=== PATIENT | male | born 1940 | race Caucasian/White ===

== ENCOUNTER 2023-03-24 23:10 | Emergency (ER) | payer MEDICARE, OTHER ==
[~2023-03-24] VITALS: Ht 175.2 cm; Wt 90.7 kg
[~2023-03-24 23:10] MED LIST: COREG25 MG PO; KEFLEX500 MG PO; KLOR-CON M2020 MEQ PO; LIPITOR10 MG PO; NORVASC5 MG; NORVASC5 MG PO; TEKTURNA300 MG PO; VICODIN 5/500 505 MG PO
[2023-03-24] MEDS ORDERED: ZESTRIL10 MG PO (23:21)
[2023-03-24] MEDS ORDERED: ELIQUIS5 M1 PO (23:22)
[2023-03-25 01:31] LABS: BASO % 0.4 % (0.0-1.0); EOS % 0.4 % (1.0-4.0); HEMATOCRIT 36.5 % (42.0-52.0); LYMPH # 0.3 10*3/uL (1.3-4.4); LYMPH % 7.6 % (27.0-41.0); MEAN CELL VOLUME 89.5 fl (80.0-94.0); MEAN CORPUSCULAR HGB 30.1 pg (27.0-31.0); MEAN CORPUSCULAR HGB CONC 33.7 g/dl (33.0-37.0); MEAN PLATELET VOLUME 9.3 fl (9.6-12.3); MONO # 0.5 10*3/uL (0.1-1.0); MONO % 11.7 % (3.0-9.0); NEUT # 3.6 10*3/uL (2.3-7.9); NEUT % 79.7 % (47.0-73.0); PLATELET COUNT AUTOMATED 80 10*3/uL (130-400); RED BLOOD COUNT 4.08 10*6/uL (4.50-5.90); RED CELL DISTRI WIDTH 14.7 % (0-14.5); WHITE BLOOD COUNT 4.5 10*3/uL (4.8-10.8)
[2023-03-25 02:47] LABS: BILIRUBIN 1+ (Negative); BLOOD 3+ (Negative); CLARITY Turbid (Clear); COLOR Red (Yellow); GLUCOSE Negative (Negative); KETONE Negative (Negative); LEUKO ESTERASE 1+ (Negative); NITRITE Positive (Negative); PH 6.5 (4.5-8.0); SPECIFIC GRAVITY 1.015 (1.001-1.030)
[2023-03-25 02:55] LABS: BACTERIA 2+; RBC TNTC rbc/hpf (0-2)
[2023-03-25] MEDS ORDERED: OMNICEF300 MG PO (04:38)
== END 2023-03-25 04:41 | disposition home or self-care (01) ==
LOC: ED 23:10
PROVIDERS: Emergency Medicine
DX: R33.9 Retention of urine, unspecified (principal); R31.9 Hematuria, unspecified; N39.0 Urinary tract infection, site not specified; I10 Essential (primary) hypertension

== ENCOUNTER 2023-04-22 00:34 | Emergency (ER) | payer MEDICARE, OTHER ==
[~2023-04-22] VITALS: Ht 175.2 cm; Wt 89.4 kg
[~2023-04-22 00:34] MED LIST changes: +ELIQUIS5 M1 PO; +KLOR-CON M2020 ME1 PO; -KLOR-CON M2020 MEQ PO; +OMNICEF300 MG PO; +ZESTRIL10 MG PO
[2023-04-22] MEDS ORDERED: ALDACTONE25 M1 PO (00:54)
[2023-04-22 02:08] LABS: BASO % 0.2 % (0.0-1.0); EOS # 0.1 10*3/uL (0.0-0.4); EOS % 1.3 % (1.0-4.0); HEMATOCRIT 33.1 % (42.0-52.0); LYMPH # 0.3 10*3/uL (1.3-4.4); LYMPH % 7.2 % (27.0-41.0); MEAN CELL VOLUME 89.9 fl (80.0-94.0); MEAN CORPUSCULAR HGB 30.7 pg (27.0-31.0); MEAN CORPUSCULAR HGB CONC 34.1 g/dl (33.0-37.0); MEAN PLATELET VOLUME 9.1 fl (9.6-12.3); MONO # 0.7 10*3/uL (0.1-1.0); NEUT # 3.6 10*3/uL (2.3-7.9); NEUT % 76.9 % (47.0-73.0); PLATELET COUNT AUTOMATED 87 10*3/uL (130-400); RED BLOOD COUNT 3.68 10*6/uL (4.50-5.90); RED CELL DISTRI WIDTH 15.3 % (0-14.5); WHITE BLOOD COUNT 4.7 10*3/uL (4.8-10.8)
[2023-04-22 02:29] LABS: BUN 12 mg/dl (9-23); CHLORIDE 98 mmol/L (98-107)
[2023-04-22 02:31] LABS: BILIRUBIN Negative (Negative); BLOOD Negative (Negative); CLARITY Clear (Clear); COLOR Yellow (Yellow); GLUCOSE Negative (Negative); KETONE Negative (Negative); LEUKO ESTERASE Negative (Negative); NITRITE Negative (Negative); PH 7.5 (4.5-8.0)
== END 2023-04-22 02:57 | disposition home or self-care (01) ==
LOC: ED 00:34
PROVIDERS: Internal Medicine
DX: R33.9 Retention of urine, unspecified (principal); E87.1 Hypo-osmolality and hyponatremia; D64.9 Anemia, unspecified; I10 Essential (primary) hypertension

== ENCOUNTER 2023-06-07 08:43 | Inpatient (IN) | payer MEDICARE, OTHER ==
[~2023-06-07] VITALS: Ht 175.2 cm; Wt 79.2 kg
[~2023-06-07 08:43] MED LIST changes: +ALDACTONE25 M1 PO
[2023-06-07 08:49] VITALS: BP 178/98
[2023-06-07] MEDS ORDERED: BUMETANIDE2 MG PO ×2 (08:51→08:52)
[2023-06-07] MEDS ORDERED: LIPITOR40 MG PO (08:54)
[2023-06-07] MEDS ORDERED: ASPIRIN81 M1 PO (08:56)
[2023-06-07 09:26] LABS: BASO % 0.6 % (0.0-1.0); EOS # 0.1 10*3/uL (0.0-0.4); EOS % 1.3 % (1.0-4.0); HEMATOCRIT 32.2 % (42.0-52.0); LYMPH # 0.3 10*3/uL (1.3-4.4); LYMPH % 6.3 % (27.0-41.0); MEAN CELL VOLUME 94.2 fl (80.0-94.0); MEAN CORPUSCULAR HGB 30.1 pg (27.0-31.0); MEAN PLATELET VOLUME 9.4 fl (9.6-12.3); MONO # 0.6 10*3/uL (0.1-1.0); MONO % 11.7 % (3.0-9.0); NEUT # 3.8 10*3/uL (2.3-7.9); NEUT % 79.7 % (47.0-73.0); PLATELET COUNT AUTOMATED 107 10*3/uL (130-400); RED BLOOD COUNT 3.42 10*6/uL (4.50-5.90); RED CELL DISTRI WIDTH 14.4 % (0-14.5); WHITE BLOOD COUNT 4.8 10*3/uL (4.8-10.8)
[2023-06-07 09:40] LABS: ACT PARTIAL THROMBO TIME 32.2 SECONDS (20.0-32.1); INTERNATIONAL NORM RATIO 1.2 (2.0-3.5)
[2023-06-07 09:52] LABS: ALKALINE PHOSPHATASE 107 U/L (46-116); BUN 22 mg/dl (9-23); CHLORIDE 104 mmol/L (98-107); LIPASE 27 U/L (12-53); POTASSIUM 4.3 mmol/L (3.4-5.1)
[2023-06-07 09:53] LABS: SGPT/ALT < 7 U/L (10-49)
[2023-06-07 11:25] VITALS: BP 179/100
[2023-06-07 13:00] VITALS: BP 171/95
[2023-06-07 16:00] VITALS: BP 164/82
[2023-06-07 20:00] VITALS: BP 148/64
[2023-06-08] VITALS: BP 140/69
[2023-06-08 06:45] LABS: BASO % 0.8 % (0.0-1.0); EOS # 0.1 10*3/uL (0.0-0.4); EOS % 1.4 % (1.0-4.0); HEMATOCRIT 33.1 % (42.0-52.0); LYMPH # 0.4 10*3/uL (1.3-4.4); LYMPH % 8.2 % (27.0-41.0); MEAN CELL VOLUME 95.9 fl (80.0-94.0); MEAN CORPUSCULAR HGB 30.1 pg (27.0-31.0); MEAN CORPUSCULAR HGB CONC 31.4 g/dl (33.0-37.0); MEAN PLATELET VOLUME 9.4 fl (9.6-12.3); MONO # 0.6 10*3/uL (0.1-1.0); MONO % 11.9 % (3.0-9.0); NEUT % 77.5 % (47.0-73.0); PLATELET COUNT AUTOMATED 117 10*3/uL (130-400); RED BLOOD COUNT 3.45 10*6/uL (4.50-5.90); RED CELL DISTRI WIDTH 14.4 % (0-14.5); WHITE BLOOD COUNT 5.1 10*3/uL (4.8-10.8)
[2023-06-08 07:18] LABS: BUN 22 mg/dl (9-23); CHLORIDE 103 mmol/L (98-107); CHOLESTEROL 111 mg/dL (<200); LDL CHOLESTEROL 62 mg/dL (9-159); POTASSIUM 4.3 mmol/L (3.4-5.1); TRIGLYCERIDES 46 mg/dl (<150)
[2023-06-08 07:38] LABS: VITAMIN D, 25-HYDROXY 30.1 ng/mL (30-100)
[2023-06-08 08:00] VITALS: BP 171/87
[2023-06-08 12:00] VITALS: BP 159/72
[2023-06-08 16:00] VITALS: BP 153/73
[2023-06-08 20:00] VITALS: BP 161/85
[2023-06-09] VITALS: BP 158/81
[2023-06-09 05:56] LABS: RETICULOCYTE % 3.45 % (0.50-2.50)
[2023-06-09 06:07] LABS: BUN 22 mg/dl (9-23); CHLORIDE 103 mmol/L (98-107)
[2023-06-09 06:37] LABS: POTASSIUM 3.2 mmol/L (3.4-5.1)
[2023-06-09 08:00] VITALS: BP 178/86
[2023-06-09 12:00] VITALS: BP 137/82
[2023-06-09 13:51] LABS: BF LYMPHOCYTES 93 %; BF MONOCYTES 5 %; BF NEUTROPHILS 1 %
[2023-06-09 16:00] VITALS: BP 144/84
[2023-06-09 20:00] VITALS: BP 160/83
[2023-06-10] VITALS: BP 154/84
[2023-06-10 08:00] VITALS: BP 165/81
[2023-06-10 11:08] LABS: ACID FAST SPEC PROCESSING Direct Inoculation (.)
[2023-06-10 12:00] VITALS: BP 154/87
[2023-06-10 16:01] VITALS: BP 153/83
[2023-06-10 20:00] VITALS: BP 137/70
[2023-06-11] VITALS: BP 164/70
[2023-06-11 06:05] LABS: BUN 22 mg/dl (9-23); CHLORIDE 104 mmol/L (98-107); POTASSIUM 3.4 mmol/L (3.4-5.1)
[2023-06-11 06:17] LABS: BASO % 0.7 % (0.0-1.0); EOS # 0.1 10*3/uL (0.0-0.4); EOS % 1.7 % (1.0-4.0); HEMATOCRIT 29.7 % (42.0-52.0); LYMPH # 0.4 10*3/uL (1.3-4.4); LYMPH % 9.5 % (27.0-41.0); MEAN CELL VOLUME 93.7 fl (80.0-94.0); MEAN CORPUSCULAR HGB 29.3 pg (27.0-31.0); MEAN CORPUSCULAR HGB CONC 31.3 g/dl (33.0-37.0); MEAN PLATELET VOLUME 9.7 fl (9.6-12.3); MONO # 0.7 10*3/uL (0.1-1.0); MONO % 15.9 % (3.0-9.0); PLATELET COUNT AUTOMATED 97 10*3/uL (130-400); RED BLOOD COUNT 3.17 10*6/uL (4.50-5.90); RED CELL DISTRI WIDTH 14.6 % (0-14.5); WHITE BLOOD COUNT 4.1 10*3/uL (4.8-10.8)
[2023-06-11 08:00] VITALS: BP 160/82
[2023-06-11] MEDS ORDERED: BUMETANIDE1 MG PO (10:51)
[2023-06-11 12:00] VITALS: BP 160/71
== END 2023-06-11 12:25 | disposition home or self-care (01) | DRG 291 ==
LOC: ED 08:43 → 5E 10:50 → EDHOLD 10:50 → 5E 11:36
PROVIDERS: Emergency Medicine; Internal Medicine; Registered Nurse; ADMIT Internal Medicine; ATTEND Internal Medicine
PROC: 0W993ZZ Drainage of Right Pleural Cavity, Percutaneous Approach (ICD-10-PCS; principal; 2023-06-09)
DX: I11.0 Hypertensive heart disease with heart failure (principal); I50.21 Acute systolic (congestive) heart failure; E44.0 Moderate protein-calorie malnutrition; I48.19 Other persistent atrial fibrillation; J91.8 Pleural effusion in other conditions classified elsewhere; E78.5 Hyperlipidemia, unspecified; D69.6 Thrombocytopenia, unspecified; D50.9 Iron deficiency anemia, unspecified; E87.6 Hypokalemia; D72.819 Decreased white blood cell count, unspecified; Z95.1 Presence of aortocoronary bypass graft; Z90.79 Acquired absence of other genital organ(s); Z87.440 Personal history of urinary (tract) infections; Z68.27 Body mass index [BMI] 27.0-27.9, adult